=== PATIENT | male | born 1980 | race Caucasian/White ===

== ENCOUNTER 2021-04-04 05:37 | Emergency (ER) | payer OTHER | END 2021-04-04 07:10 | disposition home or self-care (01) | LOC: ER1 05:37 | DX: S61.412A Laceration without foreign body of left hand, initial encounter (principal); F17.210 Nicotine dependence, cigarettes, uncomplicated; X58.XXXA Exposure to other specified factors, initial encounter | CPT/HCPCS: 12001; 99282 ==

== ENCOUNTER 2021-04-11 14:51 | Inpatient (IN) | payer OTHER ==
[~2021-04-11] VITALS: Ht 180.3 cm; Wt 106.6 kg
[2021-04-11 16:47] LABS: HEMOGLOBIN 17.7 gm/dl (14.0-17.5); RED BLOOD COUNT 5.8 M/UL (4.20-5.50); WHITE BLOOD COUNT 9.7 K/UL (4.5-11.0)
[2021-04-11 17:08] LABS: BUN/CREATININE RATIO 9 (0-10)
[2021-04-12 06:51] LABS: HEMOGLOBIN 17.3 gm/dl (14.0-17.5); RED BLOOD COUNT 5.74 M/UL (4.20-5.50); WHITE BLOOD COUNT 9.1 K/UL (4.5-11.0)
[2021-04-12 07:34] LABS: BUN/CREATININE RATIO 8 (0-10)
--- NOTE | 2021-04-12 23:49 | NUR ---
PATIENT ASKED TO ALLOW ME TO START NEW IV AT 1900 AFTER HE HAD REMOVED THE PREVIOUS IV LINE HIS SELF. PATIENT ASKED TO WAIT TILL LATER AND THAT I RETURN TO STAT THE IV LINE. RETURNED AGAIN AT 2200. PATIENT STATES HE JUST WANTS TO WAIT UNTIL THEM MORNING. NOTIFIED THE PATIENT THAT HE HAS IV VANCOMYICIN DUE AND OTHER ANTIBIOTICS TAHT IS PIVITOTAL TO HIS HEALTH. EXPLAIN THAT HIS MEDICINE NEEDS TO BE ADMINISTERED IN A TIMELY MANNER. PATIENT VERBALIZED UNDERSTANDING OF MEDICATION TEACHING I PROVIDED AND CONTINUE TO REFUSE IV PLACEMENT UNTIL THE AM. PATIENT IS ALERT AND ORIENTED X4.
[2021-04-13 04:17] LABS: HEMOGLOBIN 17.8 gm/dl (14.0-17.5); RED BLOOD COUNT 5.89 M/UL (4.20-5.50); WHITE BLOOD COUNT 7.4 K/UL (4.5-11.0)
[2021-04-13 04:47] LABS: BUN/CREATININE RATIO 13 (0-10)
[2021-04-13] MEDS ORDERED: SULFAMETHOXAZO1 EACH PO (08:50)
[2021-04-13] MEDS ORDERED: PERCOCET 5/325 T1 EA PO (08:51)
== END 2021-04-13 11:32 | disposition home or self-care (01) | DRG 863 ==
LOC: ER1 14:51 → MED SURG 4 22:45 → CDU 22:45 → MED SURG 4 23:13
PROVIDERS: Internal Medicine; Physician Assistant; ADMIT Internal Medicine
DX: T81.41XA Infection following a procedure, superficial incisional surgical site, initial encounter (principal); L03.114 Cellulitis of left upper limb; B95.62 Methicillin resistant Staphylococcus aureus infection as the cause of diseases classified elsewhere; Z20.822 Contact with and (suspected) exposure to COVID-19; F17.210 Nicotine dependence, cigarettes, uncomplicated; S61.412A Laceration without foreign body of left hand, initial encounter; Y83.8 Other surgical procedures as the cause of abnormal reaction of the patient, or of later complication, without mention of misadventure at the time of the procedure
CPT/HCPCS: 36415; 73130; 73201; 80048; 80053; 80202; 85025; 85027; 85652; 86140; 87040; 87070; 87077; 87186; 87205; 90471; 90715; 96365; 96366; 96376; 99285; J0696; J3370; J7030; J7070; Q9967; U0002